=== PATIENT | female | born 1985 | race Caucasian/White ===

== ENCOUNTER 2020-01-15 00:06 | Day surgery (SDC) | payer BC, SELFPAY ==
[2019-12-31 10:07] VITALS: BMI 38.0
[2020-01-15] VITALS (12 sets, daily range): BP systolic 112–135; BP diastolic 65–86; PULSE 57–86; RESP 10–16; TEMP 36.4–37.3; O2SAT 94–100
--- NOTE | 2020-01-15 06:39 | WPDANESEPPF ---
Anes - Initial Pre Proc Eval Procedure: Operation Date: 01/15/20 07:30 Proposed Procedures p Bilateral Breast Reduction - Asad Bruno MD Date/Time: 01/15/20 06:39 Surgeon: Asad Bruno MD Pre Op Diagnosis: Macromastia Patient Data Age: 34 Gender: F Height: 5 ft 3 in Weight: 97.52 kg Allergies Allergy/AdvReac Type Severity Reaction Status Date / Time Sulfa (Sulfonamide Allergy Mild hives Verified 12/31/19 08:53 Antibiotics) Home Medications Medication Instructions Recorded Confirmed Type hydrocodone 5 mg-acetaminophen 325 1 tablet PO Q6H PRN #15 tablet 01/03/20 Rx mg tablet Patient hx anesthesia problems: none Family hx anesthesia problems: none PMFSH Past Medical History Medical History Back pain Surgical History Surgical History History of 2 sections History of appendectomy History of tonsillectomy Social History Social History Smoking status: Never smoker Second hand tobacco smoke exposure: No Alcohol intake: current Anes - Eval Final PreProcedure Day of Procedure 01/15/20 06:39 Patient weight: obese Heart: regular rate and rhythm Lungs: clear to auscultation Airway: Mallampati scale class 1 Neurological: alert and oriented Last oral intake: >/= 8 hours ASA classification: II Emergent: no Anesthetic plan: proceed Anesthesia type and monitoring: general ETT and standard monitoring Informed Consent: The patient's anesthetic plan and its attendant risks and benefits were discussed with the patient/family/POA. Questions were solicited and answers provided to the satisfaction of the patient/family/POA.
[2020-01-15] MEDS: LACTATED RINGERS 1,000 ML 30 ML IV CONT ×2 (06:50→10:19)
--- NOTE | 2020-01-15 06:58 | WPDHPUPDATE1 ---
History and Physical Update Update Date/Time: 01/15/20 06:58 History and Physical has been reviewed, including an updated exam of the patient. There are NO changes in the patient's condition. Risks, benefits, and alternatives have been discussed and questions answered. Patient agrees to proceed with procedure.
[2020-01-15 07:07] LABS: Urine Cotinine NEGATIVE
[2020-01-15] MEDS: ceFAZolin 2 GM/D5W 50 ML 2 GM/50 ML BAG IVPB (07:27)
--- NOTE | 2020-01-15 09:32 | SUR.OPER ---
EBL:20CC
--- NOTE | 2020-01-15 09:56 | PM.PROC ---
Procedure Note - Detailed Date of procedure: 01/15/20 Pre-op diagnosis: Macromastia Post-op diagnosis: same Procedure performed: Bilateral Breast Reduction Description of procedure: She is here today for bilateral breast reduction. Previously and again today the risks, benefits, alternatives were discussed in extensive detail. I wanted her to be very realistic about the risks involved as well as expectations. We discussed aftercare and what to monitor for. She understands we can never guarantee final breast size and there will always be asymmetry. I was very upfront and honest about the risks of sensation change and even nipple loss (). Made sure answered all of her questions to her satisfaction today and consent was obtained. She was marked in the preoperative holding area with their verification. The patient was taken to the operating room placed supine on the operating table. Anesthesia was provided by anesthesiology. She was prepped and draped in a standard sterile fashion. A surgical time-out was taken. Stab incisions were made and I tumessed with a tumescent solution. I marked out the nipple-areolar complex at 42 mm. I then de-epithelialized the pedicle. The pedicle was well left well more than 2 cm in thickness. I then removed the inferior portion of the breast as well as the central keel to get shape based on preoperative planning. At this point copiously irrigated with saline solution and verified a strict hemostasis. I reapproximated the pillars using a 2-0 PDS as well as along the IMF. I tailor tacked the breast into place with ahsan. She was placed in a sitting position. I verified the nipple-areolar complex position based on preoperative markings, intraoperative measurements, and observation which were in full agreement. This nipple-areolar complex was marked at 42 mm in size. I then placed supine and de-epithelialized this. Nipple-areolar complex was inset with 3-0 Monocryl. I closed the vertical incision with 3-0 Monocryl in the IMF with 3-0 stratafix. Then everything was closed using a running subcuticular 4-0 Monocryl followed by Steri-Strips. A dressing was placed followed by surgical bra. Patient was awoke and taken to PACU without difficulty. All instrument sponge counts were correct at the end of the case. Anesthesia: GLMA Surgeon: Asad Bruno MD Estimated blood loss (mL): 30 Drains: No Packing: No Pathology: yes (Breast tissue) Complications: No immediate complications Condition: stable Disposition: PACU Findings: Tissue removed: Right: 803 grams Left: 703 grams
--- NOTE | 2020-01-15 10:54 | SUR.PHASEI ---
1054 - family updated on pt's status
[2020-01-15] MEDS: ONDANSETRON INJ 4 MG/2 ML VIAL IV PUSH (11:47)
[2020-01-15] MEDS: SCOPOLAMINE 1.5 MG PATCH TRANSDERM (12:36)
--- NOTE | 2020-01-15 13:46 | SUR.OPER ---
BREAST TISSUE SENT TO PATH: [id number] GR, LEFT:[id number].
== END 2020-01-15 14:05 | disposition home or self-care (01) ==
PROVIDERS: Visit Provider Surgery Plastic and Reconstructive Surgery
PROC: 0HBV0ZZ Excision of Bilateral Breast, Open Approach (ICD-10-PCS; CPT 19318; principal; 2020-01-15 07:30)
DX: N62 Hypertrophy of breast (principal); M54.9 Dorsalgia, unspecified; E66.9 Obesity, unspecified; Z68.37 Body mass index [BMI] 37.0-37.9, adult
CPT/HCPCS: 19318; 36415; 80307; 88305; A9270; J0131; J0171; J0690; J1100; J1170; J1200; J2250; J2405; J2704; J3010; J7120

== ENCOUNTER 2020-12-13 01:07 | Outpatient (CLI) | payer BC, SELFPAY ==
[2020-12-13 18:47] LABS: SARS-CoV-2 RNA PCR Negative
== END 2020-12-13 01:08 | disposition home or self-care (01) ==
LOC: ANHCOVIDDT 01:07
PROVIDERS: PCP Family Medicine Sports Medicine; Visit Provider Orthopaedic Surgery
DX: Z01.812 Encounter for preprocedural laboratory examination (principal); Z20.822 Contact with and (suspected) exposure to COVID-19
CPT/HCPCS: C9803; U0003; U0005

== ENCOUNTER 2020-12-17 02:16 | Day surgery (SDC) | payer BC, OTHER, SELFPAY ==
[2020-12-15 10:50] VITALS: BMI 38.2
--- NOTE | 2020-12-16 13:15 | PM.IMHP ---
H&P: HPI History of Present Illness Date/Time: Knee Pain Pt presents with Right knee pain. She has been running/exercising more and noticed intense pain, after her workout. She states her pain improves when she is up moving/walking/etc. She has some swelling in the knee. She had an MRI 05/09/20 which showed chondromalacia. She completed 6 weeks of physical therapy, which helped her at the time, but now her knee is feeling worse. Pain is posterior to the patella. Involved knee: right Onset: gradual Location of pain: medial, anterior and distal Character: stabbing and throbbing Timing of pain: intermittent Exacerbated by: weight bearing, kneeling, squatting, stairs and prolonged activity Relieved by: ice and rest Associated symptoms: Reports swelling and giving way History of occupational/recreational activity with repetitive motion: No History of prior knee injury: No Chief Complaint: Right knee pain Review of Systems Review of Systems: All systems reviewed & are unremarkable except as noted in HPI and below Constitutional: Constitutional: Denies headache(s) and Denies weakness Eyes: Eyes: Denies blurry vision, Denies change in vision and Denies loss of vision ENT: Denies dizziness, Denies dry mouth, Denies headache(s) and Denies nasal congestion Cardiovascular: Cardiovascular: Denies chest pain, Denies syncope, Denies leg edema and Denies dyspnea on exertion Respiratory: Respiratory: Denies cough and Denies dyspnea on exertion Gastrointestinal: Gastrointestinal: Denies abdominal pain, Denies constipation and Denies diarrhea Genitourinary: Genitourinary: Denies urinary frequency Musculoskeletal: Musculoskeletal: Reports as per HPI and Denies numbness Integumentary/Breasts: Skin/Breast: Reports system reviewed and no additional complaints, except as docu Neurologic: Denies dizziness, Denies syncope, Denies headache(s), Denies loss of vision, Denies numbness and Denies weakness Psychiatric: Psychiatric: Reports no additional psychiatric complaints Endocrine: Endocrine: Reports no additional endocrine complaints Hematologic/Lymphatic: Hematologic/Lymphatic: Reports no additional hematologic/lymphatic complaints [facility] Past Medical History Medical History Abnormal vision Back pain Surgical History Surgical History History of 2 sections History of appendectomy History of bilateral breast reduction surgery History of tonsillectomy Family History Family History Other Arthritis Cancer Diabetes mellitus Social History Social History Smoking status: Never smoker Second hand tobacco smoke exposure: No Alcohol intake: never Spiritual care concerns: No Meds Home Medications and Allergies Home Medications Medication Instructions Recorded Confirmed Type chlorhexidine gluconate 4 % 1 applic TOPICAL ONCE #237 ml 11/04/20 12/15/20 Rx topical liquid Allergies Allergy/AdvReac Type Severity Reaction Status Date / Time Sulfa (Sulfonamide Allergy Mild Rash Verified 12/15/20 10:36 Antibiotics) Exam Narrative: Exam Narrative: Exam Extrem Right lower extremity: normal to inspection, full ROM, normal capillary refill and knee Details: normal to inspection, tenderness Location: medial joint line and lateral joint line, swelling, abnormal ROM Details: pain with active ROM during and pain with passive ROM during, knee ligament exam normal, Ilia's Test Details: positive medially and laterally and crepitus; Negative for abrasion, laceration and ecchymosis; No cyanosis or edema Left lower extremity: normal to inspection, normal capillary refill, no joint enlargement, knee Details: normal to inspection, tenderness Location: medial joint line and lateral joint line, swelling, nor
--- NOTE | 2020-12-16 15:58 | WPDANESEPPF ---
Anes - Initial Pre Proc Eval Procedure: Operation Date: 12/17/20 07:30 Proposed Procedures p Right Knee Arthroscopy, Proceed As Indicated - Ahmet Upton MD Date/Time: 12/16/20 15:58 Surgeon: Ahmet Upton MD Pre Op Diagnosis: right knee Chondromalasia Patient Data Age: 35 Gender: F Height: 1.6 m Weight: 97.8 kg Allergies Allergy/AdvReac Type Severity Reaction Status Date / Time Sulfa (Sulfonamide Allergy Mild Rash Verified 12/17/20 06:13 Antibiotics) Home Medications Medication Instructions Recorded Confirmed Type chlorhexidine gluconate 4 % 1 applic TOPICAL ONCE #237 ml 11/04/20 12/15/20 Rx topical liquid Patient hx anesthesia problems: none Family hx anesthesia problems: none PMFSH Past Medical History Medical History (Updated 12/16/20 @ 15:59 by Otilio Marsh MD) Abnormal vision Back pain Obesity Patella, chondromalacia Surgical History Surgical History History of 2 sections History of appendectomy History of bilateral breast reduction surgery History of tonsillectomy Family History Family History Other Arthritis Cancer Diabetes mellitus Social History Social History Smoking status: Never smoker Second hand tobacco smoke exposure: No Alcohol intake: never Living arrangements: with family Spiritual care concerns: No Anes - Eval Final PreProcedure Day of Procedure 12/16/20 15:58 Patient weight: obese Heart: regular rate and rhythm Lungs: clear to auscultation and normal air movement Airway: Mallampati scale class II Neurological: alert and oriented Last oral intake: >/= 8 hours ASA classification: III Emergent: no Anesthetic plan: proceed Anesthesia type and monitoring: general LMA Informed Consent: The patient's anesthetic plan and its attendant risks and benefits were discussed with the patient/family/POA. Questions were solicited and answers provided to the satisfaction of the patient/family/POA.
[2020-12-17] VITALS (8 sets, daily range): BP systolic 103–150; BP diastolic 67–88; PULSE 51–85; RESP 12–16; TEMP 36.5–36.7; O2SAT 94–100
[2020-12-17] MEDS: CELECOXIB 200 MG CAPSULE PO (06:15)
[2020-12-17] MEDS: ACETAMINOPHEN 500 MG TABLET 1000 MG PO (06:15)
[2020-12-17] MEDS: LACTATED RINGERS 1,000 ML 30 ML IV CONT ×3 (06:47→10:27)
--- NOTE | 2020-12-17 07:22 | WPDHPUPDATE1 ---
History and Physical Update Update Date/Time: 12/17/20 07:22 History and Physical has been reviewed, including an updated exam of the patient. There are NO changes in the patient's condition. Risks, benefits, and alternatives have been discussed and questions answered. Patient agrees to proceed with procedure.
[2020-12-17] MEDS: ceFAZolin 2 GM/D5W 50 ML 2 GM/50 ML BAG IVPB (07:30)
[2020-12-17] MEDS: BUPIVACAINE HCL 0.5% PF 30 ML VIAL INFILTRATE (07:53)
[2020-12-17] MEDS: fentaNYL CITRATE INJ (*CRX) 100 MCG/2 ML VIAL 25 MCG IV PUSH ×4 (08:46→09:03)
--- NOTE | 2020-12-17 08:57 | PM.PROC ---
Procedure Note - Detailed Date of procedure: 12/17/20 Pre-op diagnosis: right knee Chondromalasia Post-op diagnosis: other (medial meniscus tear, lateral meniscus tear, chondromalacia, synovitis) Procedure performed: RIGHT KNEE SCOPE WITH CHONDROPLASTY MINOR SYNOVECTOMY Description of procedure: PATIENT WAS TAKEN TO THE OR. RIGHT LEG WAS PREPPED AND DRAPED STERILE. TROCARS WERE PLACED IN THE USUAL FASHION. CAMERA WAS INTRODUCED. THERE WAS CHONDROMALACIA TO THE PATELLA. THERE WAS NO FULL THICKNESS DEFECT. THERE WAS A FLAP TYPE TEAR WHICH WAS MOBILE. THERE WAS MILD SYNOVITIS IN ALL COMPARTMENTS. THERE WAS SOME IMPINGEMENT OF HOFFA'S SYNOVIUM WITH DEEP FLEXION. THE MEDIAL COMPARTMENT SHOWED NO CHONDROMALACIA AND NO MEDIAL MENISCUS TEAR. THE ACL WAS INTACT. THE LATERAL COMPARTMENT SHOWED NO CHONDROMALACIA AND NO LATERAL MENISCUS TEAR. THE PATELLA UNDERWENT CHONDROPLASTY AND THE CHONDRAL FLAP WAS REMOVED AND SMOOTHED TO A CONGRUENT SURFACE SYNOVECTOMY WAS PREFORMED IN HOFFA'S SYNOVIUM. THE WOUNDS WERE APPROXIMATED WITH 4.0 NYLON. STERILE DRESSING WAS APPLIED. PATIENT WAS EXTUBATED. Anesthesia: GLMA Surgeon: Ahmet Upton MD Estimated blood loss (mL): 5 Complications: No immediate complications Condition: stable Disposition: PACU
[2020-12-17] MEDS: HYDROmorphone HCL INJ (*CRX) 1 MG/ML SYR 0.25 MG IV PUSH ×4 (09:18→09:33)
[2020-12-17] MEDS: ONDANSETRON INJ 4 MG/2 ML VIAL IV PUSH (09:55)
[2020-12-17] MEDS: oxyCODONE HCL (*CRX) 5 MG TAB IR PO (10:12)
[2020-12-17] MEDS: HALOPERIDOL LACTATE 5 MG/ML VIAL 1 MG IV PUSH (10:40)
[2020-12-17] MEDS: SCOPOLAMINE 1.5 MG PATCH TRANSDERM (11:40)
== END 2020-12-17 11:59 | disposition home or self-care (01) ==
PROVIDERS: PCP Family Medicine Sports Medicine; Visit Provider Orthopaedic Surgery
PROC: (CPT 29870; principal; 2020-12-17 07:30)
DX: M22.41 Chondromalacia patellae, right knee (principal); M65.861 Other synovitis and tenosynovitis, right lower leg; E66.9 Obesity, unspecified; Z68.39 Body mass index [BMI] 39.0-39.9, adult
CPT/HCPCS: 29875; A9270; J0690; J1100; J1170; J1630; J2250; J2405; J2704; J3010; J7120